=== PATIENT | female | born 1960 ===

== ENCOUNTER 2022-05-23 11:44 | Outpatient (CLI) | payer OTHER | END 2022-05-23 11:46 | disposition home or self-care (01) | LOC: SONOGRAMA 11:44 | PROVIDERS: ATTEND Pathology Anatomic Pathology | DX: E07.9 Disorder of thyroid, unspecified (principal); D34 Benign neoplasm of thyroid gland; E04.9 Nontoxic goiter, unspecified; E04.2 Nontoxic multinodular goiter ==

== ENCOUNTER 2024-10-03 10:30 | Outpatient (CLI) | payer OTHER | END 2024-10-03 10:33 | disposition home or self-care (01) | LOC: SONOGRAMA 10:30 | PROVIDERS: ATTEND Pathology Anatomic Pathology & Clinical Pathology | DX: D34 Benign neoplasm of thyroid gland (principal); E04.1 Nontoxic single thyroid nodule ==